=== PATIENT | male | born 1965 | race Caucasian/White ===

== ENCOUNTER → 2024-12-26 | Outpatient (CLI) | payer BC, SELFPAY ==
[2024-12-26 08:45] LABS: Basophils % (Auto) 0 % (0-2.5); Eosinophils # (Auto) 0.3 Thou/mm3 (0.0-0.5); Eosinophils % (Auto) 4 % (0-10); Hematocrit 43.7 % (41.0-53.0); Immature Granulocytes % (Auto) 1 % (0-0); Immature Granulocytes Auto 0.04 Thou/mm3 (0.00-0.00); Lymphocytes # (Auto) 1.6 Thou/mm3 (1.0-4.8); Lymphocytes % (Auto) 28 % (10-50); Mean Corpuscular HGB Conc 36.6 g/dl (31.0-37.0); Mean Corpuscular Hemoglobin 30.3 pg (25.0-35.0); Mean Corpuscular Volume 83 fL (80-100); Monocytes # (Auto) 0.6 Thou/mm3 (0.0-0.8); Monocytes % (Auto) 10 % (0-12); Neutrophils # (Auto) 3.2 Thou/mm3 (1.8-7.7); Neutrophils % (Auto) 57 % (37-80); Nucleated Red Blood Cell % 0 /100 WBC (0); Platelet Count 185 Thou/mm3 (140-440); RDW Standard Deviation 40.4 fL (35.1-43.9); Red Blood Count 5.28 Miln/mm3 (4.50-5.90); White Blood Count 5.7 Thou/mm3 (3.8-10.6)
[2024-12-26 08:52] LABS: Glucose Estimated Average 117 mg/dL (80-131); Hemoglobin A1C 5.7 % Hgb (4.8-6.0)
[2024-12-26 09:03] LABS: Alanine Aminotransferase 27 U/L (10-49); Albumin, Serum 4.1 gm/dL (3.5-5.0); Albumin/Globulin Ratio 2.2 (1.2-2.2); Alkaline Phosphatase 34 U/L (46-116); Anion Gap 7 (7-16); Aspartate Amino Transferase 21 U/L (0-34); BUN/Creatinine Ratio 15 Ratio (12-20); Blood Urea Nitrogen 15 mg/dL (9-23); Calcium 8.7 mg/dL (8.3-10.6); Calcium (Corrected) 8.7 mg/dL (8.5-10.1); Carbon Dioxide 29.7 mMol/L (20.0-31.0); Chloride 106 mMol/L (98-107); Cholesterol 162 mg/dL (132-200); Free T4 (Free Thyroxine) 1.55 ng/dL (0.89-1.76); Globulin 1.9 gm/dL (2.3-3.5); Glucose 100 mg/dL (74-106); HDL Cholesterol 41 mg/dL (40-60); LDL Cholesterol,Calculated 99 mg/dL (0-130); Osmolality,Calculated 285 (275-295); Potassium 4.6 mMol/L (3.4-5.1); Sodium 143 mMol/L (136-145); Thyroid Stimulating Hormone 0.95 uIU/mL (0.55-4.78); Triglycerides 109 mg/dL (30-150); eGFR > 60 See Note
[2024-12-26 10:11] LABS: Prostate Specific Antigen 0.71 ng/mL (0-4.00)
[2024-12-26 10:14] LABS: Vitamin D 25 Hydroxy Total 38.7 ng/mL (7.3-40.2)
== END | disposition home or self-care (01) ==
LOC: COPL 07:01
PROVIDERS: PCP Internal Medicine; Referring Provider Internal Medicine; Visit Provider Internal Medicine
DX: Z00.00 Encounter for general adult medical examination without abnormal findings (principal); N40.1 Benign prostatic hyperplasia with lower urinary tract symptoms; E55.9 Vitamin D deficiency, unspecified
CPT/HCPCS: 36415; 80053; 80061; 82306; 83036; 84153; 84439; 84443; 85025

== ENCOUNTER → 2025-07-05 | Outpatient (CLI) | payer BC, SELFPAY ==
[2025-07-05 08:40] LABS: Prostate Specific Antigen 0.62 ng/mL (0-4.00)
[2025-07-05 08:43] LABS: Collection Type, Urine Clean Catch; Squamous Epithelial Cell,Urine 0 /hpf (0-5)
[2025-07-05 09:38] LABS: Bilirubin,Urine Negative (Negative); Blood,Urine Negative (Negative); Clarity,Urine Clear (Clear/Hazy); Color,Urine Yellow (Lt Yel-Yel); Culture Indicated,Urine Not Indicated; Glucose, Urine Negative (Negative); Ketones,Urine Negative (Negative); Leukocyte Esterase,Urine Negative (Negative); Nitrite,Urine Negative (Negative); PH,Urine 7.0 (5.0-7.0); Protein,Urine Negative (Neg - Trace); RBC,Urine 3 /hpf (0-3); Specific Gravity,Urine 1.017 (1.001-1.035); Urobilinogen,Urine Negative mg/dL (0.0-1.0); WBC,Urine < 1 /hpf (0-5)
== END | disposition home or self-care (01) ==
LOC: COPL 07:36
PROVIDERS: PCP Internal Medicine; Referring Provider Internal Medicine; Visit Provider Internal Medicine
DX: N39.0 Urinary tract infection, site not specified (principal); N40.1 Benign prostatic hyperplasia with lower urinary tract symptoms
CPT/HCPCS: 36415; 81001; 84153

== ENCOUNTER → 2025-08-03 | Outpatient (CLI) | payer BC, SELFPAY ==
--- NOTE | 2025-08-03 08:45 | XR_ITS ---
Examination: Retroperitoneal ultrasound, complete Technique: Multiple high resolution grayscale images of the retroperitoneum obtained, including kidneys and bladder. Exam date and time: August 03, 2025, 0840 hours INDICATION: Pelvic pain 3 months with frequent urination 3 years FINDINGS: Right kidney 10.5 cm renal cortex 2.1 cm 4 mm lower pole calculus Left kidney 11.2 cm renal cortex 1.9 cm Moderate bilateral renal parenchymal scar formation, no hydronephrosis No bladder mass or bladder calculi. Bladder prevoid volume 365 cc postvoid volume 52 cc Negative for prostatomegaly no prostate nodules IMPRESSION: 4 mm lower pole nonobstructing left renal calculus Moderate bilateral renal parenchymal scar formation
== END | disposition home or self-care (01) ==
LOC: CDIM 08:18
PROVIDERS: PCP Internal Medicine; Referring Provider Internal Medicine; Visit Provider Internal Medicine
DX: N20.0 Calculus of kidney (principal); N28.89 Other specified disorders of kidney and ureter
CPT/HCPCS: 76770

== ENCOUNTER → 2025-08-14 | Outpatient (CLI) | payer OTHER, SELFPAY ==
[2025-08-14 10:10] LABS: Collection Type, Urine Clean Catch
--- NOTE | 2025-08-14 10:18 | XR_ITS ---
EXAMINATION: PA lateral chest 2 views TECHNIQUE: Upright PA lateral chest 2 views Date and time: 730, 2025, 1026 hours, comparison November 09, 2017 INDICATIONS: Preop FINDINGS: Normal heart size Lungs are clear. Osseous structures are intact IMPRESSION: No active disease
--- NOTE | 2025-08-14 10:48 | EKG_ITS ---
[facility] Test Date: 2025-08-14 Pat Name: SUPRIYA PARADA Department: Room: - Gender: Male [place]: [place] SIERRAB: 1965 Requested By: Liana Manley Order Number: [id number] Reading MD: Liana Manley Measurements Intervals [place] Rate: 62 P: 38 CA: 168 QRS: 36 QRSD: 108 T: 33 QT: 412 QTc: 420 Interpretive Statements SINUS RHYTHM Compared to ECG 12/26/2019 09:55:23 No significant changes /[id number]
[2025-08-14 11:07] LABS: Basophils # (Auto) 0.0 Thou/mm3 (0.0-0.2); Basophils % (Auto) 1 % (0-2.5); Eosinophils # (Auto) 0.3 Thou/mm3 (0.0-0.5); Eosinophils % (Auto) 7 % (0-10); Hematocrit 47.0 % (41.0-53.0); Hemoglobin 16.5 g/dL (13.5-16.0); Immature Granulocytes Auto 0.01 Thou/mm3 (0.00-0.00); Lymphocytes # (Auto) 1.5 Thou/mm3 (1.0-4.8); Lymphocytes % (Auto) 33 % (10-50); Mean Corpuscular HGB Conc 35.1 g/dl (31.0-37.0); Mean Corpuscular Hemoglobin 30.4 pg (25.0-35.0); Mean Corpuscular Volume 87 fL (80-100); Monocytes # (Auto) 0.6 Thou/mm3 (0.0-0.8); Monocytes % (Auto) 12 % (0-12); Neutrophils # (Auto) 2.2 Thou/mm3 (1.8-7.7); Neutrophils % (Auto) 48 % (37-80); Nucleated Red Blood Cell # 0.00 Thou/mm3 (0.00-0.00); Nucleated Red Blood Cell % 0 /100 WBC (0); Platelet Count 194 Thou/mm3 (140-440); RDW Standard Deviation 42.5 fL (35.1-43.9); Red Blood Count 5.42 Miln/mm3 (4.50-5.90); White Blood Count 4.7 Thou/mm3 (3.8-10.6)
[2025-08-14 11:13] LABS: Alanine Aminotransferase 39 U/L (10-49); Albumin, Serum 4.5 gm/dL (3.5-5.0); Albumin/Globulin Ratio 1.8 (1.2-2.2); Alkaline Phosphatase 39 U/L (46-116); Anion Gap 7 (7-16); Aspartate Amino Transferase 40 U/L (0-34); BUN/Creatinine Ratio 12 Ratio (12-20); Bacteria,Urine Rare; Bilirubin,Total 0.8 mg/dL (0.3-1.2); Bilirubin,Urine Negative (Negative); Blood Urea Nitrogen 12 mg/dL (9-23); Blood,Urine Negative (Negative); Calcium 9.9 mg/dL (8.3-10.6); Calcium (Corrected) 9.9 mg/dL (8.5-10.1); Carbon Dioxide 29.3 mMol/L (20.0-31.0); Chloride 105 mMol/L (98-107); Clarity,Urine Clear (Clear/Hazy); Color,Urine Lt-Yellow (Lt Yel-Yel); Creatinine (Component) 1.0 mg/dL (0.6-1.3); Globulin 2.5 gm/dL (2.3-3.5); Glucose 97 mg/dL (74-106); Glucose, Urine Negative (Negative); Ketones,Urine Negative (Negative); Leukocyte Esterase,Urine Negative (Negative); Nitrite,Urine Negative (Negative); Osmolality,Calculated 280 (275-295); PH,Urine 7.5 (5.0-7.0); Potassium 4.7 mMol/L (3.4-5.1); Protein,Urine Negative (Neg - Trace); RBC,Urine 1 /hpf (0-3); Sodium 141 mMol/L (136-145); Specific Gravity,Urine 1.015 (1.001-1.035); Squamous Epithelial Cell,Urine 2 /hpf (0-5); Total Protein 7.0 gm/dL (5.7-8.2); Urobilinogen,Urine Negative mg/dL (0.0-1.0); WBC,Urine 1 /hpf (0-5); eGFR > 60 See Note
[2025-08-14 11:20] LABS: INR 1.0 (0.9-1.3); Partial Thromboplastin Time 26.6 Seconds (22.0-36.0); Prothrombin Time 11.0 Seconds (9.0-12.2)
== END | disposition home or self-care (01) ==
PROVIDERS: Referring Provider Specialist; Visit Provider Radiology Diagnostic Radiology
DX: Z01.818 Encounter for other preprocedural examination (principal); Z01.812 Encounter for preprocedural laboratory examination; Z01.810 Encounter for preprocedural cardiovascular examination
CPT/HCPCS: 36415; 71046; 80053; 81001; 85025; 85610; 85730; 93005